=== PATIENT | female | born 1945 | race Caucasian/White ===

== ENCOUNTER → 2019-02-23 | Outpatient (CLI) | payer MEDICARE ==
[~2019-02-23] MED LIST: AMIT25TA PO; AMLO5TAB6 PO; BRIN10TA4 PO; BUME1TAB3 PO; BUPIVACAINE HCL 0.5% 10 ML VIAL As Ordered ONE; CART240C3 PO; HEPARIN 1,000 UNITS/ML 10ML VIAL (FOR RADIOLOGY& DIALYSIS ONLY) As Ordered ONE; HYDR-3719 PO; ISOVUE-300 61% 50ML VIAL (Q9967) As Ordered ONE; LABE10TAB PO; LIDOCAINE 2% MDV 20 ML VIAL As Ordered ONE; MIDAZOLAM INJ 2 MG/2 ML VIAL (J2250) As Ordered ONE; PANT40TA3 PO; POTA1TAB23 PO; PRAV40TA2 PO; PROP325C11 PO; ROPI2TAB PO; TRAZ-252 PO; XARE15TA PO; diphenhydrAMINE INJ 50MG/ML VIAL (J1200) As Ordered ONE; fentaNYL 100 MCG/2 ML INJECTION (J3010) As Ordered ONE
[2019-02-23 10:59] LABS: HEMATOCRIT 42.6 % (36.0-47.0); HEMOGLOBIN 13.5 g/dl (12.0-15.5); MEAN CORPUSCULAR HEMOGLOBIN 27.5 pg (27.0-33.0); MEAN CORPUSCULAR HGB CONC 31.7 g/dl (32.0-36.5); MEAN CORPUSCULAR VOLUME 86.8 fl (80.0-96.0); PLATELET COUNT, AUTOMATED 284 10^3/uL (150-450); RED BLOOD COUNT 4.91 10^6/uL (4.00-5.40); WHITE BLOOD COUNT 5.7 10^3/uL (4.0-10.0)
[2019-02-23 11:10] LABS: INR 1.63; PROTHROMBIN TIME 19.1 SECONDS (11.8-14.0)
[2019-02-23 11:28] LABS: BLOOD UREA NITROGEN 11 MG/DL (7-18); CALCIUM LEVEL 8.6 MG/DL (8.8-10.2); CARBON DIOXIDE LEVEL 30 MEQ/L (21-32); CHLORIDE LEVEL 105 MEQ/L (98-107); CREATININE FOR GFR 0.84 MG/DL (0.55-1.30); GLOMERULAR FILTRATION RATE > 60.0 (>39); GLUCOSE, FASTING 90 MG/DL (70-100); POTASSIUM SERUM 3.6 MEQ/L (3.5-5.1); SODIUM LEVEL 141 MEQ/L (136-145)
[2019-02-23 14:30] VITALS: BP 180/88
--- NOTE | 2019-03-11 09:17 | REPIR ---
DATE OF PROCEDURE: 02/23/2019 ATTENDING SURGEON: Dr. Basia Carrera SHOWROOM CONSULTANT: Antoine Mohan and Kierra Levin PREOPERATIVE DIAGNOSES: Nausea, vomiting and diarrhea, gastritis, CT angiogram showing mesenteric stenosis. POSTOPERATIVE DIAGNOSES: Nausea, vomiting and diarrhea, gastritis, CT angiogram showing mesenteric stenosis. PROCEDURE: Left brachial artery exploration, selective celiac artery catheter placement with angiogram, selective SMA catheter placement with angiogram, celiac artery angioplasty and stenting with a 6 x 14 Express SD stent, superior mesenteric artery angioplasty and stenting with a 6 x 18 Express SD stent, closure of the left brachial artery arteriotomy. INDICATION: The patient is 73-year-old female with nausea, vomiting and gastritis on endoscopy who also underwent CT angiogram, which showed stenosis at the superior mesenteric and celiac arteries. The patient will undergo an angiogram with possible angioplasty, stent and/or atherectomy. ANESTHESIA: Local with sedation with 1 mg Versed, 50 mcg of fentanyl and 10 mL of 2% lidocaine mixed with 0.5% Marcaine. FLUORO TIME: 14.5 minutes. CONTRAST: 26 mL of Isovue-300 SEDATION TIME: Was from 12:25 p.m. to 1:59 p.m. HEPARIN: 7000 units followed by an additional 3000 units. Protamine none. COMPLICATIONS: None. DRAINS: None. SPECIMENS: None. PROCEDURE: The patient was taken to the angiography suite, placed supine on the angiography table and then prepped and draped in a standard surgical fashion. The left brachial artery was exposed through a transverse incision after anesthetizing the overlying skin and subcutaneous tissue. The brachial artery was cannulated with a micropuncture needle. A catheter was placed in the aorta and a selective celiac artery angiogram was performed showing stenosis in the celiac artery, which was greater than 80%. Celiac artery then underwent angioplasty and stenting with a 6 x 14 Express SD stent with followup angiogram showing resolution of the stenosis. The superior mesenteric artery was then selectively cannulated and angiogram showed high-grade stenosis, which was angioplastied and stented with a 6 x 18 Express SD stent. The followup angiogram showed resolution of the stenosis with good flow into both the celiac and superior mesenteric arteries. The catheters and wires were removed. The arteriotomy in the brachial artery was closed using 6-0 Prolene suture in interrupted fashion. The skin was closed using 3-0 Monocryl in running subcuticular fashion. Steri-Strips and dressings were applied. The patient tolerated the procedure well. All instrument, sponge and needle counts were correct at the end of the case. There were no complications. Dr. Carrera was present for and directed the entire case. The patient was transferred to the holding area and subsequently discharged in stable condition.
== END ==
LOC: M IRPRO 09:26 → MERGE 09:26
PROVIDERS: ATTEND Surgery Vascular Surgery
DX: I77.1 Stricture of artery (principal); R11.2 Nausea with vomiting, unspecified; R19.7 Diarrhea, unspecified; I48.91 Unspecified atrial fibrillation; I25.10 Atherosclerotic heart disease of native coronary artery without angina pectoris; I10 Essential (primary) hypertension; F32.9 Major depressive disorder, single episode, unspecified
CPT/HCPCS: 37236; 37237; 75625; 80048; 85027; 85610; C1769; C1876; C1887; C1894; J1200; J2250; J3010; Q9967

== ENCOUNTER → 2019-03-22 | Outpatient (CLI) | payer MEDICARE ==
[~2019-03-22] MED LIST changes: -BUPIVACAINE HCL 0.5% 10 ML VIAL As Ordered ONE; -HEPARIN 1,000 UNITS/ML 10ML VIAL (FOR RADIOLOGY& DIALYSIS ONLY) As Ordered ONE; -ISOVUE-300 61% 50ML VIAL (Q9967) As Ordered ONE; -LIDOCAINE 2% MDV 20 ML VIAL As Ordered ONE; -MIDAZOLAM INJ 2 MG/2 ML VIAL (J2250) As Ordered ONE; -diphenhydrAMINE INJ 50MG/ML VIAL (J1200) As Ordered ONE; -fentaNYL 100 MCG/2 ML INJECTION (J3010) As Ordered ONE
--- NOTE | 2019-03-22 16:13 | REP ---
DUPLEX DOPPLER EVALUATION OF CELIAC AND SUPERIOR MESENTERIC ARTERIES: Real time ultrasound evaluation and duplex Doppler interrogation of celiac and superior mesenteric arteries performed. The study is limited due to patient body habitus and bowel gas. Peak systolic velocity of the celiac arteries 120 cm/s. The proximal superior mesenteric artery demonstrates peak systolic velocity of 236 cm/s, mid aspect 243 cm/s. Electronically Signed by James Le MD 03/23/2019 04:58 P
== END ==
LOC: M RAD 09:09
PROVIDERS: ATTEND Surgery Vascular Surgery
DX: I70.8 Atherosclerosis of other arteries (principal); Z95.820 Peripheral vascular angioplasty status with implants and grafts

== ENCOUNTER 2020-04-02 15:25 | Inpatient (IN) | payer MEDICARE ==
[~2020-04-02] VITALS: Ht 165.1 cm; Wt 93.6 kg
[~2020-04-02 15:25] MED LIST changes: +AMLO1TAB24 PO; -AMLO5TAB6 PO; +PANT40TA29 PO; -PANT40TA3 PO; -ROPI2TAB PO; +ROPI2TAB3 PO
[2020-04-02 18:30] VITALS: BP 158/96
[2020-04-02] MEDS ORDERED: ACETAMINOPHEN TAB 650MG DOSE (2X325MG) PO PRN (18:30)
[2020-04-02] MEDS ORDERED: FUROSEMIDE 40MG/4ML VIAL (J1940) IV ONE (18:30)
[2020-04-02] MEDS ORDERED: SLF 3 ML SYR IV PRN (19:00)
--- NOTE | 2020-04-02 19:21 | REPVR ---
PROCEDURE INFORMATION: Exam: XR Chest, 1 View Exam date and time: 04/02/2020 6:20 PM Age: 74 years old Clinical indication: Other: Chf TECHNIQUE: Imaging protocol: XR of the chest Views: 1 view. COMPARISON: PT PET SINGLE PULMONARY NODULE 06/07/2014 2:06 PM FINDINGS: Tubes, catheters and devices: NG tube courses through the mediastinum. Tip of the tube is not visualized. Lungs: No segmental or lobar infiltrates. Mild cephalization of pulmonary vascularity may indicate CHF. Pleural space: Unremarkable. No pleural effusion. No pneumothorax. Heart/Mediastinum: Mild cardiomegaly. Bones/joints: Unremarkable. IMPRESSION: 1. Mild cardiomegaly. 2. Mild cephalization of pulmonary vascularity may indicate CHF. Electronically signed by: Steve Lua On 04/02/2020 19:21:18 PM
[2020-04-02] MEDS ORDERED: ROPI6TAB PO (19:31)
[2020-04-02] MEDS ORDERED: AMIO200T3 PO (19:31)
[2020-04-02] MEDS ORDERED: AMIT25TA PO (19:31)
[2020-04-02] MEDS ORDERED: MIDO5TA PO (19:43)
[2020-04-02] MEDS ORDERED: INSUHUMDS SC (19:43)
[2020-04-02] MEDS ORDERED: FURO1INJ14 IV (19:43)
[2020-04-02] MEDS ORDERED: [UNRECOGNIZED DRUG - CODE] IV (19:43)
[2020-04-02] MEDS ORDERED: ZOSY2INJ2 IV (19:43)
[2020-04-02] MEDS ORDERED: SODI1POW59 PO (19:43)
[2020-04-02] MEDS ORDERED: CARA1TAB6 PO (19:43)
[2020-04-02] MEDS ORDERED: CLIN1INJ IV (19:43)
[2020-04-02] MEDS ORDERED: PROT40IN4 IV (19:43)
[2020-04-02] MEDS ORDERED: LACT20EL PO (19:43)
[2020-04-02] MEDS ORDERED: MAG30ORA2 PO (19:43)
[2020-04-02 20:00] VITALS: BP 166/60
[2020-04-02 20:18] LABS: HEMATOCRIT 35.3 % (36.0-47.0); HEMOGLOBIN 9.8 g/dl (12.0-15.5); MEAN CORPUSCULAR HEMOGLOBIN 23.2 pg (27.0-33.0); MEAN CORPUSCULAR HGB CONC 27.8 g/dl (32.0-36.5); MEAN CORPUSCULAR VOLUME 83.5 fl (80.0-96.0); RED BLOOD COUNT 4.23 10^6/uL (4.00-5.40); WHITE BLOOD COUNT 16.3 10^3/uL (4.0-10.0)
[2020-04-02 20:39] LABS: ALBUMIN 2.8 GM/DL (3.2-5.2); BILIRUBIN,TOTAL 1.3 MG/DL (0.2-1.0); CALCIUM LEVEL 7.7 MG/DL (8.8-10.2); CREATININE FOR GFR 3.41 MG/DL (0.55-1.30); POTASSIUM SERUM 5.5 MEQ/L (3.5-5.1); TOTAL PROTEIN 6.1 GM/DL (6.4-8.2)
--- NOTE | 2020-04-02 20:49 | REPVR ---
PROCEDURE INFORMATION: Exam: CT Abdomen And Pelvis Without Contrast Exam date and time: 04/02/2020 8:24 PM Age: 74 years old Clinical indication: Abdominal pain; Additional info: Abd pain TECHNIQUE: Imaging protocol: Computed tomography of the abdomen and pelvis without contrast. Radiation optimization: All CT scans at this facility use at least one of these dose optimization techniques: automated exposure control; mA and/or kV adjustment per patient size (includes targeted exams where dose is matched to clinical indication); or iterative reconstruction. COMPARISON: CT ABD/PELVIS W/ CONTRAST - OUTSIDE PRIOR 10/14/2018 12:46 PM FINDINGS: Pleural space: Small right pleural effusion. Liver: Normal. No mass. Gallbladder and bile ducts: There has been a cholecystectomy. Pancreas: Normal. No ductal dilation. Spleen: Normal. No splenomegaly. Adrenals: There is bilateral adrenal hyperplasia. Kidneys and ureters: Normal. No hydronephrosis. Stomach and bowel: Multiple dilated loops of small bowel transitioning to normal caliber at the distal ileum. Findings consistent with small-bowel obstruction. Mild diverticulosis is present in the distal colon. No diverticulitis. Ascending colon dilated to 6.9 cm with an abrupt transition in the mid ascending colon without obvious mass demonstrated. Correlation with barium enema/colonoscopy suggested. There is increased feces throughout the right and left colon consistent with constipation. Appendix: No evidence of appendicitis. Intraperitoneal space: There is a small amount of free intraperitoneal fluid present. Vasculature: The aortoiliac vessels demonstrate mild atherosclerotic calcification. Lymph nodes: Unremarkable. No enlarged lymph nodes. Urinary bladder: Lema catheter demonstrated within a collapsed urinary bladder. Reproductive: There has been a hysterectomy. Bones/joints: Moderate central spinal stenosis L3-L4 and L4-L5. Soft tissues: Unremarkable. Other findings: Osteoporosis. IMPRESSION: 1. There has been a cholecystectomy. 2. There is a small amount of free intraperitoneal fluid present. 3. There is bilateral adrenal hyperplasia. 4. Multiple dilated loops of small bowel transitioning to normal caliber at the distal ileum. Findings consistent with small-bowel obstruction. 5. There has been a hysterectomy. 6. Mild diverticulosis is present in the distal colon. No diverticulitis. 7. Ascending colon dilated to 6.9 cm with an abrupt transition in the mid ascending colon without obvious mass demonstrated. Correlation with barium enema/colonoscopy suggested. 8. There is increased feces throughout the right and left colon consistent with constipation. Electronically signed by: Steve Lua On 04/02/2020 20:48:43 PM
[2020-04-02 20:53] LABS: PLATELET COUNT, AUTOMATED 98 10^3/uL (150-450)
[2020-04-02] MEDS ORDERED: SLF 3 ML SYR IV SCH (22:00)
[2020-04-03] VITALS: BP 166/62
[2020-04-03] MEDS ORDERED: PIPERACILLIN/TAZOBACTAM SOD 2.25 GM in D5W MINI-BAG PLUS 50 ML IV SCH ×2
[2020-04-03] MEDS ORDERED: SODIUM CHLORIDE 0.9% 1000ML IV SCH (00:45)
[2020-04-03] MEDS ORDERED: MORPHINE 2 MG/ML 1ML VIAL (J2270) IV PRN (00:45)
[2020-04-03] MEDS ORDERED: NS 1,000 ML IV ONE ×2 (00:45→02:15)
[2020-04-03] MEDS ORDERED: HumuLIN R (REGULAR) INSULIN (NovoLIN R) **100U/ML** PER UNIT IV STA (00:57)
[2020-04-03] MEDS ORDERED: DEXTROSE 50% 50 ML SYRINGE IV STA (00:57)
[2020-04-03] MEDS ORDERED: CALCIUM GLUCONATE 1,000 MG in D5W MINI-BAG PLUS 100 ML IV ONE (01:00)
--- NOTE | 2020-04-03 01:03 | HPEPDOC ---
General Date of Admission Apr 02, 2020 at 18:17 Date of Service: Apr 02, 2020 Chief Complaint The patient is a 74-year-old female admitted with a reason for visit of Acute Kidney Injury. Source: Patient Exam Limitations: No limitations Timing/Duration: 24 hours Severity: Moderate, Severe History of Present Illness Patient is 74 years old female with past medical history of hypertension, hyperlipidemia, atrial fibrillation, coronary artery diseases transferred from the [facility] with acute kidney failure. On 04/01/20 patient was found to have unresponsive with low blood glucose level of 36, she was brought to the [facility], stabilized. Patient was found to have acute kidney injury, right lobe pneumonia and hyperkalemia. Patient received treatment with Kayexalate for hyperkalemia and Zosyn for right lung pneumonia. On her kidney function continued to worsen and patient was transferred to [facility]. Of note, patient received Lasix drip in the [facility]. Today, blood workup showed leukocytosis of 16.3, lactic acid 4.3, potassium 5.5, creatinine 3.4, significant transaminitis. Of note, on 02/29/20 she had a stent inserted into SMA as a previous stent was not working. CT showed Multiple dilated loops of small bowel transitioning to normal caliber at the distal ileum. Findings consistent with small-bowel obstruction Home Medications Scheduled Amiodarone HCl (Amiodarone HCl) 200 Mg Tablet, 200 MG PO DAILY, (Reported) Amitriptyline HCl (Amitriptyline HCl) 25 Mg Tablet, 25 MG PO QHS, (Reported) Bumetanide (Bumetanide) 1 Mg Tablet, 1 MG PO DAILY, (Reported) Clindamycin in 0.9 % Sod Chlor (Clindamycin 600 mg/50 ml-Ns) 600 Mg/50 Ml Piggyback, 600 MG IV Q8H, (Reported) STARTED AT [facility] Diltiazem HCl (Cartia Xt) 240 Mg Cap.er.24h, 240 MG PO QPM, (Reported) Furosemide in 0.9 % NaCl (Furosemide 100 mg/100 ml-Ns) 100 Mg/100 Ml Piggyback, 1 INJ IV ASDIRECTED, (Reported) CONTINUOUS IV STARTED AT [facility] Insulin Human Lispro (Humalog) 100 Unit/1 Ml Vial, 1 DOSE SC ACHS, (Reported) STARTED AT [facility] Labetalol HCl (Labetalol HCl) 100 Mg Tablet, 100 MG PO BID, (Reported) Lactulose (Lactulose) 10 Gm/15 Ml Solution, 30 ML PO BID, (Reported) STARTED AT [facility] Mag Hydrox/Aluminum Hyd/Simeth (Mag-Al Hydrox-Simeth Max Susp) 400 Mg-400 Mg-40 Mg/5 Ml Oral.susp, 30 ML PO TID, (Reported) STARTED AT [facility] Midodrine HCl (Midodrine HCl) 5 Mg Tablet, 10 MG PO TID, (Reported) STARTED AT [facility] Pantoprazole Sodium (Pantoprazole Sodium) 40 Mg Tablet.dr, 40 MG PO DAILY, (Reported) Pantoprazole Sodium (Protonix IV) 40 Mg Vial, 40 MG IV QHS, (Reported) STARTED AT [facility] Piperacillin Sodium/Tazobactam (Zosyn 2.25 Gram Vial) 2.25 Gm Vial, 2.25 GM IV Q6H, (Reported) STARTED AT [facility], ALSO RECEIVED 3 DOSES OF 3.375GM ON 04/01/20 @2014 AND 04/02/20 @ 0148 & 0728 Potassium Chloride (Potassium Chloride) 10 Meq Tablet.er, 10 MG PO DAILY, (R eported) Pravastatin Sodium (Pravastatin Sodium) 40 Mg Tablet, 40 MG PO DAILY, (Reported) Ropinirole HCl (Ropinirole ER) 6 Mg Tab.er.24h, 6 MG PO QHS, (Reported) TAKES AT BEDTIME, GIVEN IN AM AT [facility] Sodium Bicarbonate (Sodium Bicarbonate) 10 Meq/10 Ml Syringe, 50 ML IV ASDIRECTED, (Reported) CONTINUOUS IV STARTED AT [facility] Sodium Polystyrene Sulfonate (Sodium Polystyrene Sulfonate) 15 Gm Powder, 15 GM PO Q8H, (Reported) STARTED AT [facility] Sucralfate (Carafate) 1 Gm Tablet, 1 GM PO BID, (Reported) STARTED AT [facility] Trazodone HCl (Trazodone HCl) 50 Mg Tablet, 150 MG PO QHS, (Reported) Vortioxetine Hydrobromide (Trintellix) 10 Mg Tablet, 10 MG PO DAILY, (Reported) Scheduled PRN Hydrocodone/Acetaminophen (Hydrocodone-Acetamin 10-325 mg) 1 Each Tablet, 1 TAB PO Q4H PRN for PAIN, (Reported) Allergies Coded Allergies: No Known Allergies (Unverified , 03/21/19) Past Medical History Medical History Hypertension, atrial fibrillation, hyperlipidemia, coronary artery diseases Surgical History Cholecystectomy, hysterectomy, knee prosthesis Family History I personally reviewed family history and found not pertinent Social History * Smoker: current smoker Alcohol: Denies Drugs: denies A-FIB/CHADSVASC A-FIB History Current/History of A-Fib/PAF?: Yes Current PO Anticoag Therapy: Yes Review of Systems Constitutional: Reports: Fatigue; Denies: Chills, Fever Eyes: Denies: Pain ENT: Denies: Head Aches Skin: Denies: Rash Pulmonary: Denies: Dyspnea Cardiovascular: Denies: Chest Pain, Palpitations Gastrointestinal: Reports: Nausea, Vomiting, Abdominal Pain, Constipation Genitourinary: Denies: Dysuria Hematologic: Denies: Bruising Endocrine: Denies: Polydipsia, Polyphagia Musculoskeletal: Denies: Neck Pain Neurological: Denies: Weakness Psych: Reports: Mood Normal Physical Examination General Exam: Positive: Alert, Cooperative Eye Exam: Positive: PERRLA ENT Exam: Positive: Atraumatic Neck Exam: Positive: Supple; Negative: JVD Chest Exam: Positive: Diminished Heart Exam: Positive: Irregular Rhythm Telemetry: Positive: Atrial fibrillation Abdomen Exam: Positive: BS Hyperactive, BS Hypoactive, Mass (diffuse tenderness) Extremity Exam: Negative: Clubbing, Cyanosis Skin Exam: Positive: Other skin issue (dry skin) Neuro Exam: Positive: Strength at 5/5 X4 ext, Cranial Nerves 3-12 NL Psych Exam: Positive: Mental status NL Vital Signs Vital Signs Date Time Temp Pulse Resp B/P (MAP) Pulse Ox O2 Delivery O2 Flow Rate FiO2 04/03/20 00:00 98.0 78 19 166/62 (96) 92 Room Air Laboratory Data Labs 24H Laboratory Tests 2 04/02/20 19:03: Anion Gap 11, Glomerular Filtration Rate 14.0L, Lactic Acid Level 4.3*H, Calcium Level 7.7L, Total Bilirubin 1.3H, Aspartate Amino Transf (AST/SGOT) 5564H, Alanine Aminotransferase (ALT/SGPT) 3547H, Alkaline Phosphatase 78, Total Protein 6.1L, Albumin 2.8L, Albumin/Globulin Ratio 0.8L 04/02/20 19:58: Nucleated Red Blood Cells % (auto) 1.3H, Immature Platelet Fraction 9.4, Lipase 393 04/03/20 00:40: CBC/BMP Laboratory Tests 04/02/20 19:03 04/02/20 19:58 Microbiology Microbiology 04/02/20 Blood Culture, Received Pending 04/02/20 Blood Culture, Received Pending Assessment/Plan Patient is 74 years old female with past medical history of hypertension, hyperlipidemia, atrial fibrillation, coronary artery diseases transferred from the [facility] with acute kidney failure. On 04/01/20 patient was found to have unresponsive with low blood glucose level of 36, she was brought to the [facility], stabilized. Patient was found to have acute kidney injury, right lobe pneumonia and hyperkalemia. Patient received treatment with Consuelo exalate for hyperkalemia and Zosyn for right lung pneumonia. On her kidney function continued to worsen and patient was transferred to [facility]. Of note, patient received Lasix drip in the [facility]. Today, blood workup showed leukocytosis of 16.3, lactic acid 4.3, potassium 5.5, creatinine 3.4, significant transaminitis. Of note, on 02/29/20 she had a stent inserted into SMA is a previous stent was not working. Problems (1) Sepsis Status: Acute Problem Text: 2/2 most likely due to bacterial translocation 2/2 bowel ischemia IV fluid C/w Zosyn Blood Cx (2) Shock liver Status: Acute Problem Text: Most likely patient developed stenosis of stent which was inserted into SMA on 02/29/20 Patient will need urgent angiogram, we do not have vascular surgeon coverage Patient will be transferred to upper level hospital Pain management, IV fluid, continue Zosyn Nothing by mouth for now, NG tube Dr Tellez consulted patient and recommended to transfer patient for arterial angiogram (3) LIVIA (acute kidney injury) Status: Acute (4) Acute abdomen Status: Acute Problem Text: Most likely secondary to bowel, liver , kidney ischemia secondary to possible stenosis of the SMA Patient developed shock liver with worsening kidney function Urgent transfer to arterial angiogram and vascular surgeon consult Plan / VTE VTE Prophylaxis Ordered?: Yes MAYCO HARKINS DO Apr 03, 2020 01:03
[2020-04-03] MEDS ORDERED: CETACAINE SPRAY 5GM TOP ONE (01:15)
[2020-04-03 01:36] LABS: ALBUMIN 2.6 GM/DL (3.2-5.2); BILIRUBIN,TOTAL 1.4 MG/DL (0.2-1.0); CREATININE FOR GFR 3.65 MG/DL (0.55-1.30); TOTAL PROTEIN 6.5 GM/DL (6.4-8.2)
[2020-04-03] MEDS ORDERED: NS 1,000 ML IV SCH (02:00)
--- NOTE | 2020-04-03 02:46 | DS.PDOC ---
Discharge Summary General Date of Admission Apr 02, 2020 at 18:17 Date of Discharge 04/02/20 Discharge Summary PROCEDURES PERFORMED DURING STAY: [None]. ADMITTING DIAGNOSES: Sepsis Shock liver LIVIA (acute kidney injury) Acute abdomen DISCHARGE DIAGNOSES: Sepsis Shock liver LIVIA (acute kidney injury) Acute abdomen COMPLICATIONS/CHIEF COMPLAINT: Acute Kidney Injury. HISTORY OF PRESENT ILLNESS: Patient is 74 years old female with past medical history of hypertension, hyperlipidemia, atrial fibrillation, coronary artery diseases transferred from the [facility] with acute kidney failure. On 04/01/20 patient was found to have unresponsive with low blood glucose level of 36, she was brought to the [facility], stabilized. Patient was found to have acute kidney injury, right lobe pneumonia and hyperkalemia. Patient received treatment with Kayexalate for hyperkalemia and Zosyn for right lung pneumonia. On her kidney function continued to worsen and patient was transferred to [facility]. Of note, patient received Lasix drip in the [facility]. Today, blood workup showed leukocytosis of 16.3, lactic acid 4.3, potassium 5.5, creatinine 3.4, significant transaminitis. Of note, on 02/29/20 she had a stent inserted into SMA is a previous stent was not working. HOSPITAL COURSE: During hospital stay following issue addressed 2/2 most likely due to bacterial translocation 2/2 bowel ischemia IV fluid C/w Zosyn Blood Cx (2) Shock liver Most likely patient developed stenosis of stent which was inserted into SMA on 02/29/20 Pain management, IV fluid, continue Zosyn Nothing by mouth for now, NG tube Surgeon Dr Tellez consulted patient and recommended to transfer patient for possible arterial angiogram (3) LIVIA (acute kidney injury) Most likely secondary to bowel, liver , kidney ischemia secondary to possible stenosis of the SMA Patient developed shock liver with worsening kidney function Urgent transfer to arterial angiogram and vascular surgeon consult DISCHARGE MEDICATIONS: Please see below. ALLERGIES: Please see below. PHYSICAL EXAMINATION ON DISCHARGE: VITAL SIGNS: Please see below. GENERAL: NAD HEENT: PERRLA, EOMI NECK: No JVD CARDIOVASCULAR EXAMINATION: S1-S2 RESPIRATORY EXAMINATION: Diminished lung sounds bilaterally ABDOMINAL EXAMINATION: Diffuse tenderness, positive rebound, bowel sounds present EXTREMITIES: No cyanosis, no swelling NEUROLOGICAL EXAMINATION: Nonfocal LABORATORY DATA: Please see below. IMAGING: [facility] NAME: DARREL FLYNN DATE OF : 1945 BUSINESS NUMBER: [id number] AGE: 74 SEX: F REPORT #: [id number] ROOM: [facility] TECHNOLOGIST: AMITA DOCTOR: RENÉE CORRALES MD Ordered for Date&Time: 04/02/201925 cc: [~ rep ct ivnm] Service Date&Time: 04/02/202023 This report is in Signed status. Interpretation performed by [facility]. Thank you for having your radiology procedures performed at [facility] RADIOLOGY REPORT Date&Time printed: [~ rep prt dt last] [~ rep prt tm last] Page 2 of 2 [place] [id number] RADIOLOGY REPORT This report is in Signed status. Interpretation performed by [facility]. Thank you for having your radiology procedures performed at [facility] RADIOLOGY REPORT Date&Time printed: [~ rep prt dt last] [~ rep prt tm last] Page 1 of 1 PROCEDURE INFORMATION: Exam: CT Abdomen And Pelvis Without Contrast Exam date and time: 04/02/2020 8:24 PM Age: 74 years old Clinical indication: Abdominal pain; Additional info: Abd pain TECHNIQUE: Imaging protocol: Computed tomography of the abdomen and pelvis without contrast. Radiation optimization: All CT scans at this facility use at least one of these dose optimization techniques: automated exposure control; mA and/or kV adjustment per patient size (includes targeted exams where dose is matched to clinical indication); or iterative reconstruction. COMPARISON: CT ABD/PELVIS W/ CONTRAST - OUTSIDE PRIOR 10/14/2018 12:46 PM FINDINGS: Pleural space: Small right pleural effusion. Liver: Normal. No mass. Gallbladder and bile ducts: There has been a cholecystectomy. Pancreas: Normal. No ductal dilation. Spleen: Normal. No splenomegaly. Adrenals: There is bilateral adrenal hyperplasia. Kidneys and ureters: Normal. No hydronephrosis. Stomach and bowel: Multiple dilated loops of small bowel transitioning to normal caliber at the distal ileum. Findings consistent with small-bowel obstruction. Mild diverticulosis is present in the distal colon. No diverticulitis. Ascending colon dilated to 6.9 cm with an abrupt transition in the mid ascending colon without obvious mass demonstrated. Correlation with barium enema/colonoscopy suggested. There is increased feces throughout the right and left colon consistent with constipation. Appendix: No evidence of appendicitis. Intraperitoneal space: There is a small amount of free intraperitoneal fluid present. Vasculature: The aortoiliac vessels demonstrate mild atherosclerotic calcification. Lymph nodes: Unremarkable. No enlarged lymph nodes. Urinary bladder: Lema catheter demonstrated within a collapsed urinary bladder. Reproductive: There has been a hysterectomy. Bones/joints: Moderate central spinal stenosis L3-L4 and L4-L5. Soft tissues: Unremarkable. Other findings: Osteoporosis. IMPRESSION: 1. There has been a cholecystectomy. 2. There is a small amount of free intraperitoneal fluid present. 3. There is bilateral adrenal hyperplasia. 4. Multiple dilated loops of small bowel transitioning to normal caliber at the distal ileum. Findings consistent with small-bowel obstruction. 5. There has been a hysterectomy. 6. Mild diverticulosis is present in the distal colon. No diverticulitis. 7. Ascending colon dilated to 6.9 cm with an abrupt transition in the mid ascending colon without obvious mass demonstrated. Correlation with barium enema/colonoscopy suggested. 8. There is increased feces throughout the right and left colon consistent with constipation. Electronically signed by: Steve Navarro On 04/02/2020 20:48:43 PM DD: STEVE NAVARRO MD 04/02/202023 DT: ROBBY 04/02/202047 DS: UMER 04/02/202047 [~ rep ct labl] PROGNOSIS: Guarded ACTIVITY: [As tolerated]. DIET: DISCHARGE PLAN: Patient will be transferred to [facility] DISPOSITION: . DISCHARGE INSTRUCTIONS: 1. . ITEMS TO FOLLOWUP ON ON OUTPATIENT: 1. . DISCHARGE CONDITION: [Stable]. TIME SPENT ON DISCHARGE: Greater than 3 minutes. Vital Signs/I&Os Vital Signs Date Time Temp Pulse Resp B/P (MAP) Pulse Ox O2 Delivery O2 Flow Rate FiO2 04/03/20 00:00 98.0 78 19 166/62 (96) 92 Room Air I&O- Last 24 Hours up to 6 AM 04/03/20 06:00 Intake Total 0 ml Output Total 1000 ml Balance -1000 ml Laboratory Data Labs 24H Laboratory Tests 2 04/02/20 19:03: Anion Gap 11, Glomerular Filtration Rate 14.0L, Lactic Acid Level 4.3*H, Calcium Level 7.7L, Total Bilirubin 1.3H, Aspartate Amino Transf (AST/SGOT) 5564H, Alanine Aminotransferase (ALT/SGPT) 3547H, Alkaline Phosphatase 78, Total Protein 6.1L, Albumin 2.8L, Albumin/Globulin Ratio 0.8L 04/02/20 19:58: Nucleated Red Blood Cells % (auto) 1.3H, Immature Platelet Fraction 9.4, Lipase 393 04/03/20 00:40: Anion Gap 9, Glomerular Filtration Rate 13.0L, Calcium Level 8.0L, Total B ilirubin 1.4H, Aspartate Amino Transf (AST/SGOT) 4852H, Alanine Aminotransferase (ALT/SGPT) 3446H, Alkaline Phosphatase 81, Total Protein 6.5, Albumin 2.6L, Albumin/Globulin Ratio 0.7L, Lactic Acid Followup at 4 Hours 2.4*H CBC/BMP Laboratory Tests 04/02/20 19:03 04/02/20 19:58 04/03/20 00:40 Microbiology Microbiology 04/02/20 Blood Culture, Received Pending 04/02/20 Blood Culture, Received Pending Discharge Medications Scheduled Amiodarone HCl (Amiodarone HCl) 200 Mg Tablet, 200 MG PO DAILY, (Reported) Amitriptyline HCl (Amitriptyline HCl) 25 Mg Tablet, 25 MG PO QHS, (Reported) Bumetanide (Bumetanide) 1 Mg Tablet, 1 MG PO DAILY, (Reported) Clindamycin in 0.9 % Sod Chlor (Clindamycin 600 mg/50 ml-Ns) 600 Mg/50 Ml Piggyback, 600 MG IV Q8H, (Reported) STARTED AT [facility] Diltiazem HCl (Cartia Xt) 240 Mg Cap.er.24h, 240 MG PO QPM, (Reported) Furosemide in 0.9 % NaCl (Furosemide 100 mg/100 ml-Ns) 100 Mg/100 Ml Piggyback, 1 INJ IV ASDIRECTED, (Reported) CONTINUOUS IV STARTED AT [facility] Insulin Human Lispro (Humalog) 100 Unit/1 Ml Vial, 1 DOSE SC ACHS, (Reported) STARTED AT [facility] Labetalol HCl (Labetalol HCl) 100 Mg Tablet, 100 MG PO BID, (Reported) Lactulose (Lactulose) 10 Gm/15 Ml Solution, 30 ML PO BID, (Reported) STARTED AT [facility] Mag Hydrox/Aluminum Hyd/Simeth (Mag-Al Hydrox-Simeth Max Susp) 400 Mg-400 Mg-40 Mg/5 Ml Oral.susp, 30 ML PO TID, (Reported) STARTED AT [facility] Midodrine HCl (Midodrine HCl) 5 Mg Tablet, 10 MG PO TID, (Reported) STARTED AT [facility] Pantoprazole Sodium (Pantoprazole Sodium) 40 Mg Tablet.dr, 40 MG PO DAILY, (Reported) Pantoprazole Sodium (Protonix IV) 40 Mg Vial, 40 MG IV QHS, (Reported) STARTED AT [facility] Piperacillin Sodium/Tazobactam (Zosyn 2.25 Gram Vial) 2.25 Gm Vial, 2.25 GM IV Q6H, (Reported) STARTED AT [facility], ALSO RECEIVED 3 DOSES OF 3.375GM ON 04/01/20 @2014 AND 04/02/20 @ 0148 & 0728 Potassium Chloride (Potassium Chloride) 10 Meq Tablet.er, 10 MG PO DAILY, (Reported) Pravastatin Sodium (Pravastatin Sodium) 40 Mg Tablet, 40 MG PO DAILY, (Reported) Ropinirole HCl (Ropinirole ER) 6 Mg Tab.er.24h, 6 MG PO QHS, (Reported) TAKES AT BEDTIME, GIVEN IN AM AT [facility] Sodium Bicarbonate (Sodium Bicarbonate) 10 Meq/10 Ml Syringe, 50 ML IV ASDIRECTED, (Reported) CONTINUOUS IV STARTED AT [facility] Sodium Polystyrene Sulfonate (Sodium Polystyrene Sulfonate) 15 Gm Powder, 15 GM PO Q8H, (Reported) STARTED AT [facility] Sucralfate (Carafate) 1 Gm Tablet, 1 GM PO BID, (Reported) STARTED AT [facility] Trazodone HCl (Trazodone HCl) 50 Mg Tablet, 150 MG PO QHS, (Reported) Vortioxetine Hydrobromide (Trintellix) 10 Mg Tablet, 10 MG PO DAILY, (Reported) Scheduled PRN Hydrocodone/Acetaminophen (Hydrocodone-Acetamin 10-325 mg) 1 Each Tablet, 1 TAB PO Q4H PRN for PAIN, (Reported) Allergies Coded Allergies: No Known Allergies (Unverified , 03/21/19) MAYCO HARKINS DO Apr 03, 2020 02:46
[2020-04-03 03:25] VITALS: BP 176/72
[2020-04-03 03:35] VITALS: BP 178/70
[2020-04-03] MEDS ORDERED: hydrALAZINE 20MG/ML 1ML VIAL (J0360 PER 20MG) IV STA (03:42)
[2020-04-03 03:48] VITALS: BP 178/70
[2020-04-03 04:00] VITALS: BP 160/60
[2020-04-03] MEDS ORDERED: HEPARIN SOD (PORCINE) 5000UNITS/ML 1ML VIAL/SYRINGE SC SCH (09:00)
[2020-04-03 14:13] LABS: HEPATITIS A ANTIBODY IGM NEGATIVE (NEGATIVE); HEPATITIS B CORE ANTIBODY IGM NEGATIVE (NEGATIVE); HEPATITIS B SURFACE ANTIGEN NEGATIVE (NEGATIVE); HEPATITIS C VIRUS ABY INDEX 0.2 INDEX (<0.8)
--- NOTE | 2020-04-07 10:47 | ECGEPIP ---
[facility] Test Date: 2020-04-03 Pat Name: DARREL FLYNN Department: Room: [place] [address] Gender: Female [employer]: ROBERT : 1945 Requested By: MAYCO HARKINS Order Number: [id number] Reading MD: Michael Bolivar Measurements Intervals [place] Rate: 74 P: 61 MI: 184 QRS: 53 QRSD: 100 T: 68 QT: 412 QTc: 458 Interpretive Statements SINUS RHYTHM WITH SINUS ARRHYTHMIA NONSPECIFIC ST & T-WAVE ABNORMALITY VS ARTIFACT No prior tracing in the system Electronically Signed on 04-07-2020 10:47:25 EDT by Michael Bolivar
--- NOTE | 2020-04-07 13:35 | CR ---
DATE OF CONSULTATION: 04/03/2020 CHIEF COMPLAINT: Abdominal pain. BRIEF HISTORY OF PRESENT ILLNESS: Patient was transferred from the [facility] overnight after being found unresponsive with a low blood glucose, stabilized. She was found to have acute kidney injury, right lower lobe pneumonia, hyperkalemia, and her kidney function continued to worsen overnight, was transferred here for additional evaluation. CT scan originally was done at the outside hospital which showed some inflammatory process around the pancreas but no other significant abnormality other than the pleural effusion on the right, enlarged liver. She was transferred here with a lactic acidosis and a leukocytosis, elevated creatinine, and transaminases in the 1000s. On investigation here, patient underwent a repeat CT scan here which showed multiple dilated loops of small bowel consistent with a possible small bowel obstruction, but most importantly she had superior mesenteric artery (SMA) stent or ballooning last year, it is hard to know from her records, and then she had, a few weeks ago at [facility], a repeat of the stenting in the SMA or some balloon dilatation. She essentially stated that the abdominal pain that she was having prior to the procedure did not improve from her standpoint, she continues with abdominal pain, abdominal distention, and is here for additional recommendations. PAST MEDICAL HISTORY: Is significant for history of hypertension, coronary artery disease, atrial fibrillation, cholecystectomy, hysterectomy, knee process, hyperlipidemia, diabetes mellitus. MEDICATIONS: At home include: - amiodarone - amitriptyline - bumetanide - clindamycin - diltiazem - Lasix - insulin - labetalol - lactulose - magnesium aluminum hydroxide - midodrine - Protonix - was on Zosyn at [place] - ropinirole - was given intermittent bicarbonate - Carafate - trazodone - Trintellix PHYSICAL EXAMINATION: Reveals a 34-year-old female who looks stated age. HEENT is unremarkable. Lungs are clear anteriorly although diminished posteriorly. Heart is regular with multiple irregular beats. Abdomen is distended, tympanitic, she is tender with some guarding appreciated with some significant tenderness at this time. Extremities are warm and well perfused. IMPRESSION/PLAN: Difficult at this time to note the history given that she was found down at home and the amount of time she was down or if she had echotension that proceeded this, it is hard to know, but my concern at this time is that given her recent superior mesenteric artery (SMA) issues, mesenteric ischemia issues, is that she might have clotted off her stent and especially with her liver function test abnormalities, I am wondering if this is not a superior mesenteric artery (SMA) stent or if she had balloon angioplasty of celiac, most of this is relatively vague in our history, but in any case this would fit relatively well if she was not down from a hypotensive standpoint, then this might have been an ischemic issue that has resulted in a thrombosis of an arterial vessel is my concern at this point. We do not have interventionalists available, but I would recommend an angiogram and if this would benefit her treatment, I would recommend that she get evaluation with possible mesenteric angiogram and this may be therapeutic as well as diagnostic. Depending on this, then we would be able to follow her lactic acid levels, her abdominal exam, to make sure that if there was some compromised bowel, whether this resolves. Once again, we will watch her lactic acid level. I would recommend then she would be an individual that could be followed with serial exams to rule out possible ongoing potential gastrointestinal (GI) compromise. We will place a nasogastric (NG) tube, see if we can get some less distention, and see if that makes a difference with her abdominal pain. If that does make a difference with her abdominal pain, then appropriate next steps will be recommended. However, at this point I would recommend transfer to a higher level of care for evaluation. NAVDEEP
== END 2020-04-03 04:40 | disposition short-term general hospital (02) | DRG 871 ==
LOC: M PCU 18:17
PROVIDERS: ADMIT Internal Medicine; ATTEND Internal Medicine
DX: A41.9 Sepsis, unspecified organism (principal); K72.00 Acute and subacute hepatic failure without coma; K55.059 Acute (reversible) ischemia of intestine, part and extent unspecified; N17.9 Acute kidney failure, unspecified; N28.0 Ischemia and infarction of kidney; E78.5 Hyperlipidemia, unspecified; I48.91 Unspecified atrial fibrillation; I25.10 Atherosclerotic heart disease of native coronary artery without angina pectoris; K57.30 Diverticulosis of large intestine without perforation or abscess without bleeding; Z79.899 Other long term (current) drug therapy; Z79.4 Long term (current) use of insulin; F17.200 Nicotine dependence, unspecified, uncomplicated